=== PATIENT | male | born 1950 | race Caucasian/White ===

== ENCOUNTER 2022-05-27 15:58 | Inpatient (IN) | payer OTHER ==
[~2022-05-27] VITALS: Ht 162.6 cm; Wt 60.3 kg
[2022-05-27 17:50] LABS: BASOPHILS % 0.8 % (0.0-2.0); EOSINOPHILS % 3.9 % (0.0-5.0); HEMOGLOBIN. 12.9 g/dL (14.0-18.0); LYMPHOCYTES % 21.8 % (20.0-50.0); MEAN CORPUSCULAR VOLUME 88.5 fL (80.0-94.0); MEAN PLATELET VOLUME 9.2 fl (7.4-10.4); MONOCYTES % 10.8 % (2.0-8.0); NEUTROPHILS % 62.7 % (40.0-76.0); PLATELET 152 x1000/uL (130-400); RED BLOOD CELL COUNT 4.29 mill/uL (4.7-6.1); RED CELL DISTRIBUTION WIDTH 13.8 % (11.6-14.6)
[2022-05-27 18:01] LABS: INR 1.1; PROTHROMBIN TIME 11.5 sec (9.6-11.0)
[2022-05-27 18:06] LABS: CHLORIDE 104 mEq/L (98-107)
[2022-05-27 18:18] LABS: CREATINE KINASE 86 IU/L (39-308); ETHANOL BLOOD < 10 mg/dL
[2022-05-27 20:20] LABS: *AMPHETAMINES SCREEN URINE NEGATIVE (NEGATIVE); *BARBITURATES SCREEN URINE NEGATIVE (NEGATIVE); *BENZODIAZEPINES SCREEN URINE NEGATIVE (NEGATIVE); *COCAINE SCREEN URINE NEGATIVE (NEGATIVE); CANNABINOID URINE SCREEN NEGATIVE (NEGATIVE); METHADONE URINE SCREEN NEGATIVE (NEGATIVE); OPIATES URINE SCREEN NEGATIVE (NEGATIVE); PHENCYCLIDINE URINE SCREEN NEGATIVE (NEGATIVE)
[2022-05-27] MEDS ORDERED: ASPIRIN 81MG TABLET PO ONE (22:00)
[2022-05-28 02:55] VITALS: BP 188/67
[2022-05-28] MEDS ORDERED: HYDRALAZINE 20MG/ML VIAL IV PRN (04:00)
[2022-05-28] MEDS ORDERED: DEXTROSE 50% WATER 50ML SYRINGE IV PRN (04:00)
[2022-05-28] MEDS: ATORVASTATIN CALCIUM 40MG TABLET PO SCH ×2 (06:13→21:46)
[2022-05-28] MEDS: BLOOD SUGAR DIAGNOSTIC STRIP TEST SCH ×4 (06:14→21:54)
[2022-05-28] MEDS: INSULIN LISPRO 100 UNITS/ML SUBCUT SCH ×4 (06:14→22:00)
[2022-05-28 08:00] VITALS: BP 156/64
[2022-05-28] MEDS: ASPIRIN 81MG TABLET PO SCH (08:15)
[2022-05-28] MEDS: ENOXAPARIN 40MG/0.4ML SYR SUBCUT SCH (08:15)
[2022-05-28 11:13] LABS: BASOPHILS % 0.8 % (0.0-2.0); EOSINOPHILS % 3.9 % (0.0-5.0); HEMOGLOBIN. 13.3 g/dL (14.0-18.0); LYMPHOCYTES % 17.9 % (20.0-50.0); MEAN CORPUSCULAR HEMOGLOBIN 29.6 pg (28.0-32.0); MEAN CORPUSCULAR VOLUME 88.9 fL (80.0-94.0); MEAN PLATELET VOLUME 9.4 fl (7.4-10.4); MONOCYTES % 7.9 % (2.0-8.0); NEUTROPHILS % 69.5 % (40.0-76.0); PLATELET 147 x1000/uL (130-400); RED BLOOD CELL COUNT 4.49 mill/uL (4.7-6.1); RED CELL DISTRIBUTION WIDTH 13.7 % (11.6-14.6)
[2022-05-28 11:29] LABS: CHLORIDE 101 mEq/L (98-107)
[2022-05-28 11:52] LABS: HDL CHOLESTEROL 53 mg/dL (40-59); LDL CHOLESTEROL 63 mg/dL (5-100)
[2022-05-28 12:00] VITALS: BP 152/48
[2022-05-28 16:00] VITALS: BP 143/54
[2022-05-28 20:00] VITALS: BP 135/85
[2022-05-29] VITALS: BP 128/76
[2022-05-29 04:00] VITALS: BP 135/63
[2022-05-29] MEDS: BLOOD SUGAR DIAGNOSTIC STRIP TEST SCH ×3 (06:21→17:29)
[2022-05-29] MEDS: INSULIN LISPRO 100 UNITS/ML SUBCUT SCH ×3 (07:40→17:29)
[2022-05-29 08:00] VITALS: BP 139/70
[2022-05-29] MEDS: ASPIRIN 81MG TABLET PO SCH (08:49)
[2022-05-29] MEDS: ENOXAPARIN 40MG/0.4ML SYR SUBCUT SCH (08:50)
[2022-05-29 12:00] VITALS: BP 169/70
[2022-05-29] MEDS ORDERED: ASPI-1497 MT (17:26)
[2022-05-29 17:34] VITALS: BP 158/63
[2022-05-29] MEDS ORDERED: AMLODIPINE 5MG TABLET PO SCH (21:00)
== END 2022-05-29 18:33 | disposition home or self-care (01) | DRG 74 ==
LOC: ER 16:30 → MICUSO 23:25 → 8WST 05-28 02:17
PROVIDERS: ADMIT Internal Medicine; ATTEND Internal Medicine
DX: G51.0 Bell's palsy (principal); D64.9 Anemia, unspecified; I10 Essential (primary) hypertension; E78.00 Pure hypercholesterolemia, unspecified; F17.200 Nicotine dependence, unspecified, uncomplicated; E11.65 Type 2 diabetes mellitus with hyperglycemia; Z20.822 Contact with and (suspected) exposure to COVID-19; Z86.73 Personal history of transient ischemic attack (TIA), and cerebral infarction without residual deficits
CPT/HCPCS: 36415; 70553; 71045; 80048; 80053; 80061; 80305; 80320; 82550; 82962; 83036; 84484; 85025; 87426; 93005; 93880; 99285; C9803; J1650; J1815; G0480